=== PATIENT | female | born 1985 | race Caucasian/White ===

== ENCOUNTER 2016-10-26 11:48 | Emergency (ER) | payer OTHER ==
[~2016-10-26] VITALS: Ht 147.3 cm; Wt 45.0 kg
[2016-10-26 11:52] VITALS: Ht 147.3 cm; Wt 45.0 kg
[2016-10-26] MEDS ORDERED: LORAZEPAM 1 MG TAB PO ONE ×2 (15:30→16:00)
[2016-10-26 15:33] VITALS: BP 93/72; PULSE 117; RESP 16
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
[2016-10-26] MEDS ORDERED: HYDR-906 PO (15:54)
[2016-10-26] MEDS ORDERED: ALPR1TAB2 PO (15:54)
== END 2016-10-26 16:10 | disposition home or self-care (01) ==
LOC: E/R 11:48
DX: F41.9 Anxiety disorder, unspecified (principal); F17.210 Nicotine dependence, cigarettes, uncomplicated; X99.8XXA Assault by other sharp object, initial encounter
CPT/HCPCS: Z7610 ×2; 99284